=== PATIENT | female | born 1970 | race Caucasian/White ===

== ENCOUNTER 2024-03-12 06:31 | Day surgery (SDC) | payer OTHER, SELFPAY ==
[2024-03-08 14:03] VITALS: BMI 16.9
--- NOTE | 2024-03-09 12:04 | W.CON.GYNONC ---
Chief Complaint
-
Adnexal Mass
History of Present Illness
53�yr�old�G3�P3�white�female�here�because�about�6�weeks�ago�noticed�lower�abdominal�swelling�was�seen�by�primary�who�ordered
a�pelvic�and�abdominal�u/s�and�was�found�to�have�a�13.5�x�12.7�x�4.3�cm�complex�right�adnexal�lesion�It�is�cystic�with�septations�in
addition�to�some�scattered�solid�elements.�She�denies�any�bleeding�or�vaginal�discharge.�She�also�denies�and�pain�just�some
tenderness�if�she�presses�on�it.�She�complains�of�increase�urinary�pressure.�Bowels�are�normal.�LMP�5�years�ago,�Denies�any�hx of�ovarian�cyst,�has�had�abnormal�paps�in�the�past�but�colposcopy�was�negative.�Last�pap�over�6�years�ago.�No�other�health
history. has�mammogram�scheduled never�had�colonoscopy Interval�History This�patient�returns�back�to�the�office�with�her�sister�after�initial�evaluation�a�couple�weeks�ago.�She�is�continuing�to�work�but�has notable�enlargement�of�the�lower�abdomen.
Her�labs�were�done�indicating�normal�CMP,�coagulation�studies�were�normal.�CEA�was�4.5,�CA125�was�6.5,�TSH�was�normal.
Medications No�meds�at�this�time�per�pt 01/31/2024 0 .
Past�Medical�History Anxiety� Anemia� Arthritis�
Surgical�History No�relevant�surgeries.
Social�History Currently�uses�tobacco.�Packs�per�. Current�alcohol�user. Occupational�Status:�Current:�Self�employed�. Patient�has�not�had�any�occupational�exposure.
Marital�Status:�Patient�is��with�3�child/children.�and�1�adopted�child Gynecological�History Age�at�Menarche�15�years.�Age�at�menopause:�49�years.�Patient�reports�3�pregnancies.�Her�age�at�first�full�term��was�29 years. 3�SAVD
No�history�of�hormone�replacement�therapy. Family�Medical�History Father�skin�cancer� Mom�skin�cancer� Brother�skin�cancer�
Medical History
Allergies
Allergies reflect when allergies were last updated in [facility].
No Known Allergies Allergy (Unverified 03/05/24 13:19)
Physical Exam
Physical Exam
Vitals�on�02/21/2024:16:00�AM:�Height=63.5in,�Weight=96.5lb,�Temp=97.7f,�Pulse=73,�Resp=18,�XrxexocmIF=087, DiastolicBP=80 ECOG�0:�Fully�active,�able�to�carry�on�all�pre�disease�performance�without�restriction Physical�Exam
manager advertising�present��Rula�MA external�vulva�normal�no�lesions vagina�and�cervix��no�lesions�or�discharge��pap�done uterus�and�adnexa��central�mass�tender�to�palpation�unable�to�tell�if�uterus�or�rt�adnexa�measure�about�15�wk�size�no�lext�adnexal
masses rectal��no�masses� General:�Well�developed,�well�nourished�patient.�In�no�acute�distress. Neck:�No�cervical�lymphadenopathy. No�respiratory�distress. Regular�rate. Right�Breast:�No�masses�or�dimpling.�No�nipple�discharge.
Left�Breast:�No�masses�or�dimpling.�No�nipple�discharge. soft�central�pelvic�mobile�mass�tender�to�palpation�no�rebound�tenderness Extremities:�No�edema.
Results
-
CT�abdomen�pelvis�shows�small�right�cardiophrenic�angle�lymph�node�4�x�6�mm,�liver�is�normal,�bile�ducts�gallbladder�pancreas
spleen�adrenal�glands�kidneys�and�ureters�and�bladder�are�normal.�There�is�a�large�midline�complex�cystic�mass�anterior�to�the uterus,�it�measures�12�x�12�x�16�cm�there�is�some�mural�soft�tissue�lesion�within�the�mass,�and�a�complex�cystic�component
projecting�into�the�central�portion�measuring�10�cm.�There�is�a�subtle�subcapsular�lesion�adjacent�to�the�right�lobe�of�liver�near�the
diaphragm.�There�is�no�lymphadenopathy.�Vessels�are�normal.�Bones�are�without�any�aggressive�osseous�lesion.�Moderate�amount of�stool�is�seen�throughout.�Appendix�appears�normal.
Result Value (Previous) Units Range Lab
Comp. Metabolic Panel (14)�-FinalOrdered by:�Gregorio Wilde
Glucose 78 mg/dL 70-99 [facility]
BUN 15 mg/dL 6-24 [facility]
Creat 0.93 mg/dL 0.57-1.00 [facility]
eGFR 74 mL/min/1.73 >59 [facility]
BUN Creat Ratio 16 9-23 [facility]
Sodium 138 mmol/L 134-144 [facility]
Potassium 4.7 mmol/L 3.5-5.2 [facility]
Chloride 102 mmol/L 96-106 [facility]
CO2 21 mmol/L 20-29 [facility]
Calcium 9.6 mg/dL 8.7-10.2 [facility]
Total Protein 6.8 g/dL 6.0-8.5 [facility]
Albumin 4.4 g/dL 3.8-4.9 [facility]
Globulin 2.4 g/dL 1.5-4.5 [facility]
Total Bili 0.5 mg/dL 0.0-1.2 [facility]
Alk Phos 101 IU/L 44-121 [facility]
AST 40 IU/L 0-40 [facility]
ALT 39High IU/L 0-32 [facility]
Prothrombin Time (PT)�-FinalOrdered by:�Gregorio Wilde
INR 1.1 0.9-1.2 [facility]
���������������Reference�interval�is�for�non-anticoagulated�patients.
��������������������������������������������������������������������.
���������������Suggested�INR�therapeutic�range�for�Vitamin�K
���������������antagonist�therapy:
������������������Standard�Dose�(moderate�intensity
���������������������������������therapeutic�range):�������2.0�-�3.0
������������������Higher�intensity�therapeutic�range�������2.5�-�3.5
ProTime 11.9 sec 9.1-12.0 [facility]
CEA�-FinalOrdered by:�Gregorio Wlide
CEA 4.5 ng/mL 0.0-4.7 [facility]
��������������������������������������������Nonsmokers����������<3.9
��������������������������������������������Smokers�������������<5.6
��������������������������������������������������������������������.
���������������[facility]�Electrochemiluminescence�Immunoassay
���������������(ECLIA)
��������������������������������������������������������������������.
���������������Values�obtained�with�different�assay�methods�or�kits
���������������cannot�be�used�interchangeably.��Results�cannot�be
���������������interpreted�as�absolute�evidence�of�the�presence�or
���������������absence�of�malignant�disease.
CA 19-9�-FinalOrdered by:�Gregorio Wilde
CA19_9 5 U/mL 0-35 [facility]�Electrochemiluminescence�Immunoassay�(ECLIA)
���������������������������������������������������������������������.
Values�obtained�with�different�assay�methods�or�kits�cannot�be
used�interchangeably.��Results�cannot�be�interpreted�as�absolute
evidence�of�the�presence�or�absence�of�malignant�disease.
Cancer Antigen (CA) 125�-FinalOrdered by:�Gregorio Wilde
CA125 6.5 U/mL 0.0-38.1 [facility]�Electrochemiluminescence�Immunoassay�(ECLIA)
���������������������������������������������������������������������.
Values�obtained�with�different�assay�methods�or�kits�cannot�be
used�interchangeably.��Results�cannot�be�interpreted�as�absolute
evidence�of�the�presence�or�absence�of�malignant�disease.
TSH�-FinalOrdered by:�Gregorio Wilde
TSH 1.020 uIU/mL 0.450-4.500 [facility]
PTT, Activated�-FinalOrdered by:�Gregorio Wilde
aPTT 28 sec 24-33 [facility]
Impression / Plan
-
This�patient�has�a�large�mass�which�is�suspicious�for�renal�neoplasm�arising�from�left�ovary.�The�general�appearance�is�consistent
with�a�mucinous�neoplasm�possibly�borderline�tumor�but�obviously�malignancy�cannot�be�excluded.�It�is�reassuring�to�see�that�her CA125�is�normal.�I�do�recommend�proceeding�with�surgery.�Surgery�recommendation�is�to�explore�the�abdomen�using�robotic
platform,�assessment�of�the�ovary�will�be�made�and�if�possible�the�ovary�will�be�placed�in�a�bag�and�drained.�Initially I recommended Robotic�assisted�TLH and BSO.
With respect to the extent of surgery we had a lengthy conversation, she would like to have the mass removed which is essentially
a tube and ovary, she is accepting of having a mini laparotomy to have this mass extracted. If the mass is benign and there is no
evidence of cancer she would like to preserve her uterus and cervix as well as the contralateral ovary but she is willing to allow me
to remove her contralateral fallopian tube. She understands that in the event malignancy is discovered total laparoscopic
hysterectomy bilateral salpingo�oophorectomy as well as comprehensive staging procedures is advised and she is accepting of
that.
The�patient�may�require�laparotomy�for�extraction�of�specimen.�Frozen�section�will�be�done�of�the�mass�and�if necessary�based�on�the�information�on�the�frozen�we�will�perform�staging�procedures�to�include�but�not�limited�to�pelvic�and�aortic
lymph�node�dissection,�omentectomy,�peritoneal�biopsies�and�possible�appendectomy�and�bowel�resection.�
Patient�understands she�may�require�additional�treatments�based�on�final�pathology.�Risk�of�surgery�including�infection�bleeding�injury�to�adjacent organs�DVT�pulmonary�embolism�cardiovascular�complications�were�discussed�and�reviewed
We�agreed�that�she�will�have�surgery�Nov.�Surgery�will�be�done�at[facility]
[2024-03-12] VITALS (12 sets, daily range): BP systolic 93–121; BP diastolic 61–83; BMI 16.9
[2024-03-12] MEDS: HEPARIN 5000 UNITS SC (09:15)
[2024-03-12] MEDS: EMEND 40 MG PO (09:56)
[2024-03-12] MEDS: DEMEROL 12.5 MG IV ×2 (12:42→12:51)
[2024-03-12] MEDS: DILAUDID 0.25 MG IV (13:09)
--- NOTE | 2024-03-12 13:10 | OR.RPT ---
Operative Report
Operative Report
Date of procedure: March 12, 2024
Preoperative diagnosis: 18 cm complex right ovarian mass
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
Procedure: Robotic assisted exploration of the abdomen, total laparoscopic hysterectomy bilateral salpingo-oophorectomy, pelvic washings, infracolic omentectomy, appendectomy, peritoneal biopsies, tap block
Surgeon: Pedro Dinero MD
Assist: Denise Wilde PA-C
Anesthesia: General, ET
Estimated blood loss 100 cc
Complications none
Specimen: Right tube and ovary, left fallopian tube, uterus cervix and left ovary, omentum, appendix, right pelvic peritoneum, left uterosacral ligament implant, pelvic washings
Procedure in detail this patient was taken to the operating room for management of 18 cm complex mass arising from right ovary. Her tumor markers including CEA and CA125 were normal. Her CT scan did not reveal any evidence of peritoneal disease or
retroperitoneal lymphadenopathy. Upon arrival to the operating room she was placed in supine position, general anesthesia was administered she was intubated without any difficulty and she was placed in lithotomy position using yellowfin stirrups,
arms were protected across all joints and shoulder and neck were protected eyes were taped and OG tube was placed. Under sterile conditions after she was draped Castellanos catheter was placed, timeout procedure was completed, she received 2 g of Ancef
and 500 mg of Flagyl. Anterior lip of the cervix was grasped with single-tooth tenaculum, cervical canal was dilated and uterine manipulator, inhalation therapy aide type with 3.5 cm ELLEN ring was placed around the cervix and the uterine cavity and vaginal cuff
insufflator was filled. Attention was turned abdominally, Veress needle was inserted just below the costal margin and insufflation with CO2 gas was performed up to pressure of 15 mmHg. Next 8 mm X Xi robotic port was introduced at approximately 22
cm cephalad to symphysis pubis into the peritoneal cavity, we examined the upper abdomen and noted right and left diaphragms to be normal, right and left paracolic gutters to be within normal limits there is no ascites. Tap block was performed on
right and left sides under direct visualization utilizing combination of ropivacaine, saline and Decadron injected 2 fingerbreadths below the lateral subcostal margin just below the muscle and also mid abdomen bilaterally. Left tube and ovary
appears to be within normal limits. Right ovary appears to be enlarged with generally smooth capsule to about 18 to 20 cm with no significant adhesions to adjacent organs. Under direct visualization 8 mm X Xi robotic ports were introduced in the
right upper quadrant, left upper quadrant and left lateral abdomen, 12 mm air seal port was introduced right lower quadrant. The patient was placed in 28 degree Trendelenburg and robotic system was docked, initially pelvic washings were collected
and submitted to pathology. Left fallopian tube was elevated mesosalpinx was sealed and divided left fallopian tube was removed and submitted to pathology. We introduced a endoscopic bag into the abdomen and placed the right ovary within the bag.
We went ahead and made a small incision in the ovary and aspirated the contents in order to decompress it. Next the right pelvic sidewall was opened, the IP ligament was isolated, the course of ureter was visualized IP ligament was sealed 3 times
and divided on the right side. Attachments of the tube and ovary to the uterus were sealed and divided and the entire tube and ovary was left within the bag. We examined the contents in the internal features of the cyst and noted that there was
significant excrescences and cystic formation worrisome for presence of low malignant potential tumor or malignancy. With this in mind I had already counseled the patient and if there was concern for malignancy that we would proceed with the
procedure as noted above. I went ahead and sealed both round ligaments and divided them right and left round ligament was dissected open paravesical and pararectal spaces were developed bilaterally the left IP ligament was isolated sealed and
divided left tube and ovary was attached to the uterus and left attached. Anterior cul-de-sac peritoneum was opened and extended below the level of the cervix uterine arteries were skeletonized on both sides and sealed and divided paracervical
tissue was sealed and divided circumferential incision was made over the coring until the uterus was completely detached. Uterus and cervix along with left ovary was removed and submitted to pathology in the bag containing right tube and ovary was
removed through the vagina. The specimen of right tube and ovary was submitted to pathology. In the meantime there were 2 peritoneal implants along the right and left uterosacral ligaments which were excised and submitted to pathology these were
suggestive of endometriosis based on appearance. I turned my attention to the appendix the appendix appeared to be thick and nodular, the appendix was elevated, meso appendix was sealed and divided with bipolar cautery and scissors until the cecum
was free. I used a robotic 45 mm vascular stapler which was introduced through the new 12 mm port placed in the right upper quadrant and we stapled across the cecum appendix was removed through the vagina and sent for pathology. The vessel sealer
was used to ligate a series of omental vessels along the transverse colon from hepatic to splenic flexure and a generous portion of the omentum was submitted to pathology again this was removed through the vagina. At this point the entire abdomen
appeared to be normal and there was no residual peritoneal implants. Vagina was closed with 0 Vicryl suture ligature in a [id number] fashion incorporating uterosacral ligaments on both sides. V-Loc suture was used to close the vaginal cuff
starting from right to left and back to the right side in 2 layers. We irrigated the pelvis copiously and all pedicles were hemostatic we undocked the robotic system and released the pneumoperitoneum and then proceeded to examine and irrigate the
right paracolic gutter and there right subdiaphragmatic space and all of these were normal. All ports were removed the fascia at the right lower quadrant and right upper right upper quadrant of the abdomen was closed at the level of fascia with 0
Vicryl suture in a [id number]-di-ibgru fashion. 4-0 Monocryl was used to close the skin incisions at all port sites. The vagina was examined and there was no evidence of bleeding Castellanos catheter was removed at the completion of the procedure. Patient
was awakened extubated and returned back to recovery room stable condition counts of laps instruments and needle was correct x 2. I was present and scrubbed for entire procedure as dictated above
Disposition: To PACU stable awake and extubated
== END 2024-03-12 14:37 | disposition home or self-care (01) ==
LOC: SDS 06:31
PROVIDERS: ATTENDING PHYSICIAN Obstetrics & Gynecology Gynecologic Oncology; OTHER PHYSICIAN Physician Assistant
DX: D27.0 Benign neoplasm of right ovary (principal); N83.9 Noninflammatory disorder of ovary, fallopian tube and broad ligament, unspecified; N83.8 Other noninflammatory disorders of ovary, fallopian tube and broad ligament; N72 Inflammatory disease of cervix uteri; N80.549 Endometriosis of the appendix, unspecified depth
CPT/HCPCS: 58571; 49321; 44970; 88302; 88304; 88305; 88307; 88332; 36415; 86850; 86900; 86901; 88112; 88331; 88341; 88342; 88360

== ENCOUNTER 2024-03-13 10:20 | Emergency (ER) | payer OTHER, SELFPAY ==
[2024-03-13 10:22] VITALS: BP 127/80
--- NOTE | 2024-03-13 10:58 | ED.GENMED ---
History of Present Illness
General
Chief Complaint: Abdominal Pain
Source: patient and spouse
Exam Limitations: none
Time Seen by Provider: 03/13/24 10:28
Nursing documentation reviewed up to this point in time: agreed with
History of Present Illness
History of Present Illness:
53-year-old female presents emergency department complaining of bilateral lower rib pain/upper abdominal pain since she woke up this morning. Yesterday she had an ovarian mass removed by Dr. Dinero. It was a robotic assisted surgery.
Past History
Past History
ED Past Medical History: Other (irritable bowel)
ED Past Surgical History: Gynecological (Ovarian mass removal 03/12/2024)
Social History
Tobacco: Smoker
Review of Systems
Review of Systems
Allergies reviewed?: Yes
All Other Systems: Not applicable
Constitutional: Reports no symptoms
EENT: Reports no symptoms
Respiratory: Reports trouble breathing
Cardiac: Reports chest pain
ABD/GI: Reports abdominal pain
: Reports no symptoms
Musculoskeletal: Reports no symptoms
Skin: Reports no symptoms
Neurological: Reports no symptoms
Endocrine: Reports no symptoms
Hematologic/Lymphatic: Reports no symptoms
Psychiatric: Reports no symptoms
Phy Exam
Physical Exam
Physical Exam:
Physical Exam
General: Afebrile, appears uncomfortable
Neck: supple. no meningeal signs. normal posterior pharynx
Heart: s1/s2 regular rate and rhythm, no murmur. equal radial
pulses.
HEENT: Pupils equal round reactive to light, EOMI
Lungs: no acute respiratory distress. clear bilaterally
Abdomen: normal bowel sounds. Bilateral upper quadrant tenderness, incisions clean dry and intact. No CVAT
Neuro: alert and oriented. no focal neurological deficits cranial nerves II through XII intact
Skin: no rash
Psychiatric: well kept. interactive and cooperative
Extremities: no edema. no calf tenderness. negative homans. good distal pulses
Course
Orders/Labs/Results
Orders:
Orders
03/13/24 10:39
CT Pe/abd/pel W Urgent
Reason For Exam: lower chest pain, short of breath surgery yesterda
03/13/24 10:58
HYDROmorphone [Dilaudid] 1 mg IV NOW STA
Ondansetron Injectable [Zofran] 4 mg IV NOW STA
03/13/24 11:16
Complete Blood Count/With Diff Urgent
Comprehensive Metabolic Panel Urgent
Lipase Urgent
Troponin I Urgent
03/13/24 12:18
Electrocardiogram (*1) Stat
Reason for Study: Chest Pain
Electrocardiogram (*1) Urgent
Reason for Study: Fatigue / Weakness
EKG- Treatment ONCE
Abnormal Lab Results
03/13/24
11:16
WBC 15.8 H 10^3/uL
(4.8-10.8)
RBC 3.57 L 10^6/uL
(4.20-5.40)
Hgb 11.3 L g/dL
(12.0-16.0)
Hct 34.0 L %
(37.0-47.0)
MCH 31.7 H pg
(27.0-31.0)
Abs Immat Gran (auto) 0.1 H 10^3/uL
(0-0.05)
Absolute Neuts (auto) 12.4 H 10^3/uL
(1.4-6.5)
Absolute Monos (auto) 1.6 H 10^3/uL
(0.1-0.6)
Neutrophils % 78.4 H %
(42.2-75.2)
Lymphocytes % 10.8 L %
(20.5-51.1)
Monocytes % 10.2 H %
(1.7-9.3)
BUN 20 H mg/dl
(7-17)
Glucose 102 H mg/dl
(70-99)
AST 50 H U/L
(14-36)
ALT 84 H U/L
(0-35)
03/13/24 11:16
03/13/24 11:16
Vital Signs
Initial and Last Documented VS:
Initial Vital Signs
Temp Pulse Resp BP Pulse Ox
98.7 F 77 16 127/80 100
03/13/24 10:22 03/13/24 10:22 03/13/24 10:22 03/13/24 10:22 03/13/24 10:22
Last Documented Vital Signs
Temp Pulse Resp BP Pulse Ox
98.7 F 68 14 127/80 99
03/13/24 10:22 03/13/24 14:30 03/13/24 14:30 03/13/24 10:22 03/13/24 14:30
MDM/Problems Addressed
Differential Diagnosis Includes:
PE, bowel obstruction, bowel perforation
MDM/Problems Addressed:
53-year-old female with postoperative abdominal/chest pain. No signs of PE or bowel perforation. Normal postoperative pneumoperitoneum. Stable for discharge.
Acute Exacerbation and/or Progression of Chronic Illness: Previous abdomnial surgery
*Radiology
Radiology exam reviewed: radiology read reviewed (CT chest abdomen pelvis no acute findings, no PE)
*Pulse Oximetry
Patient hypoxic: no
*EKG
Interpreted by ED Provider?: Yes
EKG Intrepretation Date: 03/13/24
EKG Intrepretation Time: 12:40
Interpretation: abnormal
Comparison EKG: no comparison EKG present
Heart Rate: 68
Rate: normal
Rhythm: sinus
[place]: left axis deviation
Interval: normal interval
QRS Pattern: right bundle branch block
Ischemia: no ischemia
*Physicians Assistant Interpretation
Rate: normal
Interpretation: normal
Heart Rate: 66
Rhythm: sinus
*Critical Care Note
Total Time (30-74mins, 75-104mins- exclusive of procedures): Not Applicable
Data Reviewed
Review of Other/Old Records Reveals: Operative Reports (pelvic mass removed 03/12/24)
Source: records
Patient Management
Social determinants of health affecting care: Living situation
Discussion with other providers: Communications Technologist ([facility])
Escalation/DeEscalation of care consider admission/obs:
admit not indicated
ED Attending Note
-
Portions of this chart may have been created with voice recognition software.� Occasional wrong word or��sound alike� substitutions may have occurred due to the inherent limitations of voice recognition software.
Discharge Plan
Departure
Patient Disposition: Home (Routine Discharge)
Date of Disposition: 03/13/24
Time of Disposition: 14:40
Patient with high blood pressure during this ER visit?: Yes
Condition: Good
Discharge Problem:
Acute postoperative abdominal pain
Instructions: Coughing and Deep Breathing After Surgery, Abdominal Pain
Prescriptions:
New
gabapentin 300 mg capsule
300 mg PO TID PRN (Reason: pain) Qty: 14 0RF
No Action
iron
1 tab PO DAILY
milk thistle
1 cap PO DAILY
turmeric
1 cap PO DAILY
Referrals:
Pedro Dinero MD [Active] - Call in 1-3 days for appt
Jasmin Palomino DO [Family Provider] -
Interventions
Interventions:
*Risk Screen - Suicide Last Done: 03/13/24 10:22
*General Assessment Last Done: 03/13/24 10:22
*Neglect/Abuse Screening Last Done: 03/13/24 15:23
ED- Fall Risk Assessment Last Done: 03/13/24 15:23
*ED COVID-19 Vaccine History Last Done: 03/13/24 10:22
*Nursing Disposition Last Done: 03/13/24 15:23
FF-Pveuat-Ouhkuwhope Assessment Last Done: 03/13/24 15:10
Discharge Date and Time
Discharge Date/Time: 03/13/24 15:25
Print Language: BULGARIAN
[2024-03-13 11:08] VITALS: BMI 16.7
[2024-03-13] MEDS: ZOFRAN 4 MG IV (11:15)
[2024-03-13] MEDS: DILAUDID 1 MG IV (11:15)
[2024-03-13 11:32] LABS: % Basophils 0.1 % (0-2); % Eosinophils 0.1 % (0-6); % Immature Granulocytes 0.4 % (0-0.5); % Lymphocytes 10.8 % (20.5-51.1); % Monocytes 10.2 % (1.7-9.3); % Neutrophils 78.4 % (42.2-75.2); Absolute Immature Granulocytes 0.1 10^3/uL (0-0.05); Absolute Lymphocytes 1.7 10^3/uL (1.2-3.4); Absolute Monocytes 1.6 10^3/uL (0.1-0.6); Absolute Neutrophils 12.4 10^3/uL (1.4-6.5); Hemoglobin 11.3 g/dL (12.0-16.0); Mean Corp Hgb Conc. 33.2 g/dL (33.0-37.0); Mean Corpuscular Hgb 31.7 pg (27.0-31.0); Mean Corpuscular Volume 95.2 fL (81.0-99.0); Mean Platelet Volume 10.3 fL (7.4-10.4); Nucleated Red Blood Cells % 0 %; Platelet Count 216 10^3/uL (130-400); Red Blood Cell Count 3.57 10^6/uL (4.20-5.40); Red Cell Dist. Width 11.9 % (11.5-14.5); White Blood Cell Count 15.8 10^3/uL (4.8-10.8)
[2024-03-13 11:51] LABS: ALT (SGPT) 84 U/L (0-35); AST (SGOT) 50 U/L (14-36); Albumin 4.1 g/dl (3.5-5.0); Alkaline Phosphatase 84 U/L (38-126); Blood Urea Nitrogen 20 mg/dl (7-17); Calcium 9.3 mg/dl (8.4-10.2); Carbon Dioxide 23 mmol/L (22-30); Chloride 101 mmol/L (98-107); Estimated Creatinine Clearance 65 ml/min; Glucose 102 mg/dl (70-99); Lipase 92 U/L (23-300); Potassium 4.5 mmol/L (3.5-5.1); Sodium 135 mmol/L (135-145); Total Bilirubin 0.7 mg/dl (0.2-1.3); Total Protein 6.5 g/dl (6.3-8.2); eGFR > 60.00
[2024-03-13 12:02] LABS: Troponin I < 0.012 ng/ml
== END 2024-03-13 15:25 | disposition home or self-care (01) ==
LOC: EMR 10:20
PROVIDERS: EMERGENCY PHYSICIAN Emergency Medicine; FAMILY PHYSICIAN Family Medicine
DX: G89.18 Other acute postprocedural pain (principal); R10.10 Upper abdominal pain, unspecified; F17.200 Nicotine dependence, unspecified, uncomplicated; R07.81 Pleurodynia
CPT/HCPCS: 99284; 96374; 96375; 71275; 74177; 80053; 83690; 84484; 85025; 93005; Q9967